=== PATIENT | male | born 1990 | race Native Hawaiian/Other Pacific Islander ===

== ENCOUNTER 2023-11-12 02:18 | Emergency (ER) | payer OTHER ==
[~2023-11-12] VITALS: Ht 175.3 cm; Wt 79.4 kg
[2023-11-12 02:43] LABS: PLATELET COUNT 284 K/uL (142-355)
[2023-11-12 02:48] LABS: POTASSIUM 3.6 mmol/L (3.6-5.2)
[2023-11-12 03:30] VITALS: BP 155/98; TEMP 98.2
== END 2023-11-12 03:30 | disposition short-term general hospital (02) ==
LOC: ED 02:18
PROVIDERS: Family Medicine
DX: S32.9XXA Fracture of unspecified parts of lumbosacral spine and pelvis, initial encounter for closed fracture (principal); T14.8XXA Other injury of unspecified body region, initial encounter; W34.00XA Accidental discharge from unspecified firearms or gun, initial encounter
CPT/HCPCS: 80053; 85027; 96374; 96375; 99284; J1170; J2405; J3010